=== PATIENT | female | born 1965 | race Caucasian/White ===

== ENCOUNTER 2017-09-06 09:34 | Emergency (ER) | payer MEDICAID ==
[~2017-09-06] VITALS: Ht 180.3 cm; Wt 59.4 kg
[~2017-09-06 09:34] MED LIST: MOTRIN800 MG PO
[2017-09-06 09:40] VITALS: Ht 180.3 cm; Wt 59.4 kg
[2017-09-06 10:43] VITALS: BP 118/63
== END 2017-09-06 10:43 | disposition home or self-care (01) ==
LOC: ED 09:34
DX: L21.0 Seborrhea capitis (principal)

== ENCOUNTER 2018-07-12 19:37 | Emergency (ER) | payer MEDICAID ==
[~2018-07-12] VITALS: Ht 167.6 cm; Wt 61.9 kg
[2018-07-12 19:52] VITALS: Ht 167.6 cm; Wt 61.9 kg
[2018-07-12 21:16] VITALS: BP 98/68
== END 2018-07-12 21:16 | disposition home or self-care (01) ==
LOC: ED 19:37
DX: L50.0 Allergic urticaria (principal)
CPT/HCPCS: J1200; J7512

== ENCOUNTER 2018-09-26 22:11 | Emergency (ER) | payer OTHER ==
[~2018-09-26] VITALS: Ht 167.6 cm; Wt 62.6 kg
[2018-09-26 22:56] VITALS: Ht 167.6 cm; Wt 62.6 kg
[2018-09-27 00:03] LABS: BASOPHIL % 0.3 % (0-2); PLATELET COUNT 184 x10^3mcL (130-400); RED CELL DISTRIBUTION WIDTH 13.7 % (11.5-14.5)
[2018-09-27 00:10] LABS: CALCIUM 8.8 mg/dL (8.5-10.1); CHLORIDE SERUM 104 mmol/L (98-107); CREATININE SERUM 0.7 mg/dL (0.6-1.0); GFR1 > 60 mL/min; GLUCOSE SERUM 127 mg/dL (74-106); POTASSIUM SERUM 3.5 mmol/L (3.5-5.1); SODIUM SERUM 141 mmol/L (136-145)
[2018-09-27 00:15] LABS: ALKALINE PHOSPHATASE 70 U/L (46-116); ALT/SGPT 31 U/L (14-59); AST/SGOT 19 U/L (15-37); BILIRUBIN TOTAL 0.2 mg/dL (0.20-1.00); LIPASE 155 IU/L (73-393); TOTAL PROTEIN, SERUM 6.8 g/dL (6.4-8.2)
[2018-09-27 00:16] LABS: ALBUMIN 3.3 g/dL (3.4-5.0)
[2018-09-27 01:42] LABS: UA SPECIFIC GRAVITY 1.015 (1.005-1.035); microscopic required? YES; urine erythrocyte 1+ (NEGATIVE)
[2018-09-27 03:22] VITALS: BP 110/57
== END 2018-09-27 03:22 | disposition home or self-care (01) ==
LOC: ED 22:11
PROVIDERS: Emergency Medicine
DX: N39.0 Urinary tract infection, site not specified (principal); N72 Inflammatory disease of cervix uteri
CPT/HCPCS: 87491; 87591; J0696; J1885; J2270; J2405; J7030; Q0162; Q9967

== ENCOUNTER 2020-01-24 15:35 | Emergency (ER) | payer MEDICAID, SELFPAY ==
[~2020-01-24] VITALS: Ht 167.6 cm; Wt 63.5 kg
[2020-01-24 15:37] VITALS: Ht 167.6 cm; Wt 63.5 kg
[2020-01-24 17:15] VITALS: BP 128/60
== END 2020-01-24 17:15 | disposition home or self-care (01) ==
LOC: ED 15:35
DX: U07.1 COVID-19 (principal)
CPT/HCPCS: U0003